=== PATIENT | female | born 1975 | race Caucasian/White ===

== ENCOUNTER 2022-03-07 05:45 | Day surgery (SDC) | payer MEDICAID ==
[~2022-03-07] VITALS: Ht 157.5 cm; Wt 71.7 kg
[2022-03-07 06:11] LABS: HCG,QUAL RESULT NEGATIVE (NEGATIVE)
[2022-03-07] MEDS ORDERED: SIMETHICONE 40 MG/0.6 ML ML ONE (06:13)
[2022-03-07] MEDS ORDERED: MEPERIDINE 100 MG INJ. 100 MG/ML VIAL ONE (06:13)
[2022-03-07] MEDS: MIDAZOLAM HCL 5 MG/5 ML VIAL ONE ×2 (07:25→07:29)
[2022-03-07 09:29] VITALS: BP_SYST 142
== END 2022-03-07 09:00 | disposition home or self-care (01) ==
LOC: SMU 05:45 → SDS 05:45
PROVIDERS: ATTEND Internal Medicine Gastroenterology
DX: R13.10 Dysphagia, unspecified (principal); K29.00 Acute gastritis without bleeding; K29.50 Unspecified chronic gastritis without bleeding; B96.81 Helicobacter pylori [H. pylori] as the cause of diseases classified elsewhere; K29.80 Duodenitis without bleeding; K20.90 Esophagitis, unspecified without bleeding; Z79.899 Other long term (current) drug therapy; Z20.822 Contact with and (suspected) exposure to COVID-19
CPT/HCPCS: 36415 ×2; 43239; 84703; 87081; 87426; 88305; 88312; 88313; G0378; J2175; J2250; U0003